=== PATIENT | female | born 2000 | race Two or more races ===

== ENCOUNTER 2024-12-12 14:59 | Inpatient (IN) | payer OTHER ==
[~2024-12-12] VITALS: Ht 157.5 cm; Wt 53.6 kg
[2024-12-12] MEDS ORDERED: MAGNESIUM HYDROXIDE SUSPENSION 30 ML UDCUP PO PRN (19:45)
[2024-12-12] MEDS ORDERED: BISACODYL 10 MG RECTAL RECTAL SUPPOSITORY PR PRN (19:45)
[2024-12-12] MEDS ORDERED: ACETAMINOPHEN 325 MG TABLET PO PRN (19:45)
[2024-12-12] MEDS ORDERED: HYDROCODONE/ACETAMINOPHEN 5-325 MG TABLET PO PRN (19:45)
[2024-12-12] MEDS ORDERED: ONDANSETRON HCL 4 MG/2 ML VIAL IVP PRN (19:45)
[2024-12-12] MEDS ORDERED: MORPHINE SULFATE 2 MG/ML SYRINGE IVP PRN (19:45)
[2024-12-12] MEDS ORDERED: ZOLPIDEM TARTRATE 5 MG TABLET PO PRN (19:45)
[2024-12-12 20:07] LABS: BASOPHILS % (AUTO) 0.5 % (0.0-2.0); EOSINOPHILS % (AUTO) 7.1 % (1.0-6.0); HEMATOCRIT 40.3 % (36-46); HEMOGLOBIN 13.1 g/dL (12.0-16.0); LYMPHOCYTES # (AUTO) 2.1 K/uL (1.0-4.8); LYMPHOCYTES % (AUTO) 19.8 % (22.0-44.0); MEAN CORPUSCULAR HGB CONC 32.5 G/dL (31.0-37.0); MEAN CORPUSCULAR VOLUME 83 fL (80-100); MONOCYTES # (AUTO) 0.5 K/uL (0.1-1.0); MONOCYTES % (AUTO) 4.6 % (2.0-9.0); NEUTROPHILS # (AUTO) 7.1 K/uL (1.8-7.7); PLATELET COUNT (AUTO) 311 K/uL (150-450); RED BLOOD CELL COUNT(AUTO) 4.85 MIL/uL (4.00-5.20); RED CELL DISTRIBUTION WIDTH 15.5 % (11.5-14.5); WHITE BLOOD COUNT (AUTO) 10.4 K/uL (4.5-11.0)
[2024-12-12 20:12] LABS: ANION GAP 15 mmol/L (8-16); CALCIUM, TOTAL 9.4 mg/dL (8.8-10.5); CARBON DIOXIDE 22 mmol/L (22-29); CHLORIDE 104 mmol/L (98-107); CREATININE 0.58 mg/dL (0.60-1.30); GLOMERULAR FILTR. RATE CALC > 60 mL/min (>60); GLUCOSE,RANDOM 77 mg/dL (70-110); POTASSIUM 4.5 mmol/L (3.5-5.1); SODIUM SERUM 141 mmol/L (136-145); UREA NITROGEN, BLOOD 15 mg/dL (7-18)
[2024-12-12 20:23] LABS: HCG,QUANTITATIVE 1 mIU/mL (0-6)
[2024-12-12 21:25] VITALS: BP 109/61; PULSE 71; RESP 18; TEMP 98.9; O2SAT 99
[2024-12-13] MEDS: HEPARIN SODIUM,PORCINE 5,000 UNITS/ML VIAL SQ SCH (00:24)
[2024-12-13 04:46] VITALS: BP 109/78; PULSE 76; RESP 18; TEMP 98.6; O2SAT 98
[2024-12-13 05:01] LABS: APPEARANCE,URINE CLEAR (CLEAR); BILIRUBIN,URINE NEGATIVE (NEGATIVE); COLOR,URINE YELLOW (YELLOW); GLUCOSE, URINE (UA) NEGATIVE (NEGATIVE); KETONES,URINE 40-60 mg/dL (NEGATIVE); LEUKOCYTE ESTERASE ,URINE MODERATE (NEGATIVE); NITRATE,URINE NEGATIVE (NEGATIVE); OCCULT BLOOD,URINE NEGATIVE (NEGATIVE); PROTEIN,URINE TRACE mg/dL (NEGATIVE); SPECIFIC GRAVITIY, URINE 1.024 (1.003-1.030); UROBILINOGEN,URINE <=1.0 mg/dL (<=1.0)
[2024-12-13 05:13] LABS: BACTERIA,URINE None Seen /HPF (None Seen); RBC,URINE None Seen /HPF (0-2); SQUAMOUS EPITHELIAL CELL,UR Few /LPF (None Seen)
[2024-12-13] MEDS: PANTOPRAZOLE SODIUM 40 MG DR TABLET PO SCH (07:48)
[2024-12-13 07:49] VITALS: BP 99/59; PULSE 89; RESP 18; TEMP 98.2; O2SAT 98
[2024-12-13 19:38] VITALS: BP 99/69; PULSE 78; RESP 18; TEMP 98.4; O2SAT 99
[2024-12-14 04:15] VITALS: BP 105/72; PULSE 81; RESP 16; TEMP 98.7; O2SAT 98
[2024-12-14] MEDS ORDERED: SODIUM CHLORIDE 3% 15 ML NEB SOLUTION NEB ONE (08:00)
[2024-12-14 08:05] VITALS: PULSE 87; RESP 16; O2SAT 99
[2024-12-14] MEDS: IPRATROPIUM BROMIDE 0.5 MG/2.5 ML NEB SOLUTION NEB PRN (08:05)
[2024-12-14] MEDS: ALBUTEROL SULFATE 2.5 MG/0.5 ML NEB SOLUTION NEB PRN (08:05)
[2024-12-14 08:17] VITALS: PULSE 82; RESP 16; O2SAT 99
[2024-12-14 08:20] VITALS: BP 101/70; PULSE 78; RESP 20; TEMP 98.6; O2SAT 97
[2024-12-14 11:41] LABS: MTB PCR w/Rif. Resistance-SPUT NOT DETECTED (Not Detectd)
[2024-12-14 11:41] LABS: MTB PCR w/Rif. Resistance-SPUT NOT DETECTED (Not Detectd)
[2024-12-14 14:01] LABS: MTB PCR w/Rif. Resistance-SPUT NOT DETECTED (Not Detectd)
[2024-12-14 19:58] VITALS: BP 102/65; PULSE 60; RESP 18; TEMP 97.7; O2SAT 100
[2024-12-15 03:07] LABS: HIV 1-2 SCREEN 4TH GEN W/RFLX Non Reactive (Non Reactive)
[2024-12-15 03:07] LABS: HIV 1-2 SCREEN 4TH GEN W/RFLX Non Reactive (Non Reactive)
[2024-12-15 04:05] VITALS: BP 95/65; PULSE 75; RESP 16; TEMP 98.2; O2SAT 100
[2024-12-15 09:00] VITALS: BP 104/65; PULSE 78; RESP 18; TEMP 98.1; O2SAT 99
[2024-12-15 19:37] VITALS: BP 107/67; PULSE 77; RESP 18; TEMP 98.4; O2SAT 98
[2024-12-16 04:39] VITALS: BP 99/68; PULSE 70; RESP 18; TEMP 98.2; O2SAT 98
[2024-12-16 08:31] VITALS: BP 100/62; PULSE 75; RESP 20; TEMP 99.3; O2SAT 97
[2024-12-16 22:39] VITALS: BP 101/64; PULSE 72; RESP 18; TEMP 98.2; O2SAT 97
[2024-12-17 04:00] VITALS: BP 90/59; PULSE 78; RESP 20; TEMP 99.1; O2SAT 97
[2024-12-17 09:13] VITALS: BP 98/65; PULSE 82; RESP 17; TEMP 98.2; O2SAT 98
[2024-12-17 13:08] LABS: QUANTIFERON+, Nil Value 0.04 IU/mL; QUANTIFERON+,Mitogen Value >10.00 IU/mL; QUANTIFERON+,TB1 Antigen Value 0.04 IU/mL; QUANTIFERON+,TB2 Antigen Value 0.04 IU/mL; QUANTIFERON, TB GOLD PLUS Negative (Negative)
[2024-12-17 19:58] VITALS: BP 103/62; PULSE 66; RESP 18; TEMP 98.1; O2SAT 99
[2024-12-18 05:23] VITALS: BP 106/62; PULSE 67; RESP 18; TEMP 98; O2SAT 99
[2024-12-18 08:42] VITALS: BP 101/62; PULSE 69; RESP 18; TEMP 98.6; O2SAT 98
== END 2024-12-18 12:52 | DRG 204 ==
LOC: EMS 14:59 → EDH 16:50 → 6S 21:17
PROVIDERS: ADMIT Hospitalist; ATTEND Hospitalist
DX: R05.8 Other specified cough (principal); Z78.9 Other specified health status; Z79.899 Other long term (current) drug therapy
CPT/HCPCS: 71046; 80048; 81001; 84702; 85025; 86480; 87015; 87206; 87389; 87556; 94640; 99285; J1644; 36415-L1; 36415-TC; J7613